=== PATIENT | male | born 1975 | race Caucasian/White ===

== ENCOUNTER → 2016-08-10 | Outpatient (CLI) | payer OTHER ==
[~2016-08-10] MED LIST: AMBIEN5 MG; ATIVAN0.5 MG PO; BACTRIM DS 8001 TA1 PO; BIAXIN500 MG PO; CELEXA10 MG PO; CELEXA40 MG PO; FIORICET 325 MG1 TAB PO; FLEXERIL10 MG PO; HYDROCODONE BIT1 T11 PO; KEFLEX500 MG PO; LAMICTAL100 MG PO; MOTRIN800 MG PO; NEURONTIN600 MG PO; ROBAXIN750 MG PO; VALIUM10 MG PO; VASOTEC10 MG PO; VICODIN ES 7501 TAB PO; VIIBRYD40 PO; VISTARIL25 M1 PO; XANAX0.5 MG PO
[2016-08-10 10:24] LABS: BASO % 0.5 % (0.0-1.0); EOS # 0.2 10*3/uL (0.0-0.4); EOS % 2.9 % (1.0-4.0); HEMATOCRIT 45.6 % (42.0-52.0); HEMOGLOBIN 15.2 g/dl (14.0-18.0); LYMPH # 2.3 10*3/uL (1.3-4.4); LYMPH % 34.7 % (27.0-41.0); MEAN CELL VOLUME 93.1 fl (80.0-94.0); MEAN CORPUSCULAR HGB CONC 33.3 g/dl (33.0-37.0); MEAN PLATELET VOLUME 9.7 fl (9.6-12.3); MONO # 0.6 10*3/uL (0.1-1.0); MONO % 8.6 % (3.0-9.0); NEUT # 3.5 10*3/uL (2.3-7.9); NEUT % 53.1 % (47.0-73.0); PLATELET COUNT AUTOMATED 246 10*3/uL (130-400); RED CELL DISTRI WIDTH 12.4 % (0-14.5); WHITE BLOOD COUNT 6.5 10*3/uL (4.8-10.8)
[2016-08-10 10:55] LABS: ALBUMIN 4.1 gm/dl (3.1-4.5); BUN 11 mg/dl (7-24); CARBON DIOXIDE 31 mmol/L (21-32); CHLORIDE 101 mmol/L (98-107); EST GLOM FILT AFRICAN AMERICAN > 60 ml/min; GLUCOSE 93 mg/dL (65-99); POTASSIUM 3.6 mmol/L (3.5-5.1); SGPT/ALT 26 U/L (12-78); SODIUM 140 mmol/L (136-145)
[2016-08-10 11:04] LABS: ALKALINE PHOSPHATASE 65 U/L (45-117); BILIRUBIN, TOTAL 0.9 mg/dl (0.2-1.0); SGOT/AST 13 IU/L (3-35); TOTAL PROTEIN 7.1 gm/dL (6.4-8.2)
[2016-08-10 11:13] LABS: VITAMIN D, 25-HYDROXY 16.4 ng/mL (30-100)
== END | disposition home or self-care (01) ==
LOC: LAB 09:52
PROVIDERS: Physician Assistant
DX: Z51.81 Encounter for therapeutic drug level monitoring (principal)

== ENCOUNTER 2018-12-09 19:40 | Emergency (ER) | payer SELFPAY ==
[~2018-12-09] VITALS: Ht 182.8 cm; Wt 104.3 kg
[2018-12-09] MEDS ORDERED: IBU600 M1 PO (20:08)
== END 2018-12-09 20:30 | disposition home or self-care (01) ==
LOC: ED 19:40
DX: M75.22 Bicipital tendinitis, left shoulder (principal)

== ENCOUNTER → 2018-12-16 | Outpatient (CLI) | payer SELFPAY ==
[~2018-12-16] MED LIST changes: +IBU600 M1 PO
[2018-12-16 19:02] LABS: URINE AMPHETAMINES < 1000 (1000ng/ml); URINE BARBITURATES < 200 (200ng/ml); URINE BENZODIAZEPINES < 200 (200ng/ml); URINE CANNABINOIDS (THC) < 50 (50ng/ml); URINE COCAINE < 300 (300ng/ml); URINE METHADONE < 300 (300ng/ml); URINE OPIATES < 300 (300ng/ml)
[2018-12-16 19:03] LABS: URINE PHENCYCLIDINE < 25 (25ng/ml)
== END | disposition home or self-care (01) ==
LOC: LAB 17:16
PROVIDERS: Nurse Practitioner Family
DX: Z51.81 Encounter for therapeutic drug level monitoring (principal); F43.10 Post-traumatic stress disorder, unspecified; F31.4 Bipolar disorder, current episode depressed, severe, without psychotic features; Z79.899 Other long term (current) drug therapy

== ENCOUNTER 2019-02-04 21:17 | Emergency (ER) | payer SELFPAY ==
[~2019-02-04] VITALS: Ht 180.3 cm; Wt 102.1 kg
== END 2019-02-04 23:30 | disposition home or self-care (01) ==
LOC: ED 21:17
DX: G43.909 Migraine, unspecified, not intractable, without status migrainosus (principal); I10 Essential (primary) hypertension; Z79.899 Other long term (current) drug therapy

== ENCOUNTER 2019-02-24 21:38 | Emergency (ER) | payer SELFPAY ==
[~2019-02-24] VITALS: Ht 182.8 cm; Wt 99.8 kg
== END 2019-02-24 22:35 | disposition left against medical advice (07) ==
LOC: ED 21:38
DX: R00.2 Palpitations (principal); F41.9 Anxiety disorder, unspecified; F32.9 Major depressive disorder, single episode, unspecified; I10 Essential (primary) hypertension; E78.00 Pure hypercholesterolemia, unspecified; Z79.899 Other long term (current) drug therapy

== ENCOUNTER 2019-05-24 22:35 | Emergency (ER) | payer SELFPAY ==
[~2019-05-24] VITALS: Ht 182.8 cm; Wt 99.8 kg
== END 2019-05-25 01:12 | disposition home or self-care (01) ==
LOC: ED 22:35
DX: G43.909 Migraine, unspecified, not intractable, without status migrainosus (principal); F41.9 Anxiety disorder, unspecified; F32.9 Major depressive disorder, single episode, unspecified; I10 Essential (primary) hypertension; F17.200 Nicotine dependence, unspecified, uncomplicated

== ENCOUNTER 2022-04-21 07:05 | Emergency (ER) | payer SELFPAY ==
[~2022-04-21] VITALS: Wt 104.3 kg
[2022-04-21] MEDS ORDERED: ZITHROMAX250 MG PO (07:44)
[2022-04-21] MEDS ORDERED: FLONASE ALLERG9.9 ML NAS (07:44)
== END 2022-04-21 07:52 | disposition home or self-care (01) ==
LOC: ED 07:05
DX: J06.9 Acute upper respiratory infection, unspecified (principal); Z98.890 Other specified postprocedural states

== ENCOUNTER 2022-06-14 18:51 | Emergency (ER) | payer SELFPAY ==
[~2022-06-14] VITALS: Wt 93.0 kg
[~2022-06-14 18:51] MED LIST changes: +FLONASE ALLERG9.9 ML NAS; +ZITHROMAX250 MG PO
== END 2022-06-14 20:33 | disposition home or self-care (01) ==
LOC: ED 18:51
DX: S60.021A Contusion of right index finger without damage to nail, initial encounter (principal); L03.011 Cellulitis of right finger; F41.9 Anxiety disorder, unspecified; F32.A Depression, unspecified; I10 Essential (primary) hypertension; Z98.890 Other specified postprocedural states; X58.XXXA Exposure to other specified factors, initial encounter; Y93.89 Activity, other specified; Y92.89 Other specified places as the place of occurrence of the external cause; Y99.8 Other external cause status

== ENCOUNTER 2023-01-10 17:26 | Emergency (ER) | payer SELFPAY ==
[~2023-01-10] VITALS: Ht 182.8 cm; Wt 86.2 kg
[2023-01-10] MEDS ORDERED: CYCLOBENZAPRINE5 M3 PO (20:45)
== END 2023-01-10 20:45 | disposition home or self-care (01) ==
LOC: ED 17:26
DX: S39.012A Strain of muscle, fascia and tendon of lower back, initial encounter (principal); R10.30 Lower abdominal pain, unspecified; F41.9 Anxiety disorder, unspecified; I10 Essential (primary) hypertension; F32.A Depression, unspecified; Z98.890 Other specified postprocedural states; X50.0XXA Overexertion from strenuous movement or load, initial encounter; Y93.43 Activity, gymnastics; Y92.39 Other specified sports and athletic area as the place of occurrence of the external cause; Y99.8 Other external cause status

== ENCOUNTER 2023-04-07 10:16 | Emergency (ER) | payer OTHER ==
[~2023-04-07] VITALS: Ht 180.3 cm; Wt 90.7 kg
[~2023-04-07 10:16] MED LIST changes: +CYCLOBENZAPRINE5 M3 PO
[2023-04-07 10:51] LABS: BASO % 0.6 % (0.0-1.0); EOS # 0.2 10*3/uL (0.0-0.4); EOS % 3.4 % (1.0-4.0); HEMATOCRIT 45.3 % (42.0-52.0); LYMPH # 1.8 10*3/uL (1.3-4.4); LYMPH % 38.2 % (27.0-41.0); MEAN CELL VOLUME 98.1 fl (80.0-94.0); MEAN CORPUSCULAR HGB 31.8 pg (27.0-31.0); MEAN CORPUSCULAR HGB CONC 32.5 g/dl (33.0-37.0); MEAN PLATELET VOLUME 9.1 fl (9.6-12.3); MONO # 0.6 10*3/uL (0.1-1.0); MONO % 11.6 % (3.0-9.0); NEUT # 2.2 10*3/uL (2.3-7.9); PLATELET COUNT AUTOMATED 281 10*3/uL (130-400); RED BLOOD COUNT 4.62 10*6/uL (4.50-5.90); RED CELL DISTRI WIDTH 12.5 % (0-14.5); WHITE BLOOD COUNT 4.7 10*3/uL (4.8-10.8)
[2023-04-07 11:11] LABS: ALKALINE PHOSPHATASE 89 U/L (46-116); BUN 16 mg/dl (9-23); CHLORIDE 105 mmol/L (98-107); POTASSIUM 4.5 mmol/L (3.4-5.1); SGPT/ALT 15 U/L (5-49); TOTAL PROTEIN 6.8 gm/dL (6.0-8.0)
[2023-04-07] MEDS ORDERED: REGLAN10 M1 PO (11:49)
[2023-04-07] MEDS ORDERED: IBU800 M1 PO (11:49)
== END 2023-04-07 11:58 | disposition home or self-care (01) ==
LOC: ED 10:16
PROVIDERS: Emergency Medicine
DX: G43.909 Migraine, unspecified, not intractable, without status migrainosus (principal); F41.9 Anxiety disorder, unspecified; F32.A Depression, unspecified; I10 Essential (primary) hypertension; R11.2 Nausea with vomiting, unspecified; Z98.890 Other specified postprocedural states

== ENCOUNTER 2023-06-12 23:09 | Emergency (ER) | payer OTHER ==
[~2023-06-12] VITALS: Ht 180.3 cm; Wt 90.7 kg
[~2023-06-12 23:09] MED LIST changes: +IBU800 M1 PO; +REGLAN10 M1 PO
[2023-06-12] MEDS ORDERED: Bacitracin Zinc 14 GM TUBE T ONE (23:50)
== END 2023-06-13 00:16 | disposition home or self-care (01) ==
LOC: ED 23:09
DX: S00.01XA Abrasion of scalp, initial encounter (principal); Z98.890 Other specified postprocedural states; W22.8XXA Striking against or struck by other objects, initial encounter; Y93.89 Activity, other specified; Y92.009 Unspecified place in unspecified non-institutional (private) residence as the place of occurrence of the external cause; Y99.8 Other external cause status

== ENCOUNTER 2023-09-04 14:14 | Emergency (ER) | payer OTHER ==
[~2023-09-04] VITALS: Wt 90.7 kg
[2023-09-04] MEDS ORDERED: SODIUM CHLORIDE 0.9% 1,000 ML IV ONE (14:55)
[2023-09-04] MEDS ORDERED: ACETAMINOPHEN 325 MG TAB PO ONE (14:55)
[2023-09-04] MEDS ORDERED: Metoclopramide Hydrochloride 10 MG/2 ML AMP IV ONE (14:55)
[2023-09-04] MEDS ORDERED: Ketorolac Tromethamine 15 MG/ML VIAL IV ONE (14:55)
[2023-09-04] MEDS ORDERED: diphenhydrAMINE hydrochloride 50 MG/ML VIAL IV ONE (14:55)
[2023-09-04] MEDS ORDERED: REGLAN10 M1 PO (16:30)
== END 2023-09-04 16:40 | disposition home or self-care (01) ==
LOC: ED 14:14
DX: R51.9 Headache, unspecified (principal); Z79.899 Other long term (current) drug therapy; Z98.890 Other specified postprocedural states

== ENCOUNTER 2023-10-29 01:39 | Emergency (ER) | payer OTHER ==
[~2023-10-29] VITALS: Wt 88.5 kg
[2023-10-29 01:57] LABS: BASO % 0.2 % (0.0-1.0); EOS # 0.1 10*3/uL (0.0-0.4); EOS % 0.9 % (1.0-4.0); HEMATOCRIT 46.4 % (42.0-52.0); LYMPH # 1.7 10*3/uL (1.3-4.4); LYMPH % 14.8 % (27.0-41.0); MEAN CELL VOLUME 95.9 fl (80.0-94.0); MEAN CORPUSCULAR HGB 31.8 pg (27.0-31.0); MEAN CORPUSCULAR HGB CONC 33.2 g/dl (33.0-37.0); MEAN PLATELET VOLUME 9.2 fl (9.6-12.3); MONO # 0.7 10*3/uL (0.1-1.0); MONO % 6.2 % (3.0-9.0); NEUT # 8.7 10*3/uL (2.3-7.9); NEUT % 77.5 % (47.0-73.0); PLATELET COUNT AUTOMATED 273 10*3/uL (130-400); RED BLOOD COUNT 4.84 10*6/uL (4.50-5.90); RED CELL DISTRI WIDTH 12.1 % (0-14.5); WHITE BLOOD COUNT 11.2 10*3/uL (4.8-10.8)
[2023-10-29 02:08] LABS: ACT PARTIAL THROMBO TIME 23.1 SECONDS (20.0-32.1)
[2023-10-29 02:20] LABS: ALKALINE PHOSPHATASE 73 U/L (46-116); BUN 16 mg/dl (9-23); CHLORIDE 103 mmol/L (98-107); ETHYL ALCOHOL < 3.0 mg/dl (<3); LIPASE 30 U/L (12-53); POTASSIUM 3.7 mmol/L (3.4-5.1); SGPT/ALT 26 U/L (5-49); TOTAL PROTEIN 7.2 gm/dL (6.0-8.0)
== END 2023-10-29 06:01 | disposition home or self-care (01) ==
LOC: ED 01:39
PROVIDERS: Internal Medicine
DX: T50.991A Poisoning by other drugs, medicaments and biological substances, accidental (unintentional), initial encounter (principal); G43.909 Migraine, unspecified, not intractable, without status migrainosus; R40.4 Transient alteration of awareness; R11.0 Nausea; F41.9 Anxiety disorder, unspecified; I10 Essential (primary) hypertension; F32.A Depression, unspecified; Z79.899 Other long term (current) drug therapy; Z98.890 Other specified postprocedural states; Z87.891 Personal history of nicotine dependence; Y92.89 Other specified places as the place of occurrence of the external cause

== ENCOUNTER 2023-12-23 05:19 | Emergency (ER) | payer OTHER ==
[~2023-12-23] VITALS: Ht 180.3 cm; Wt 86.2 kg
[2023-12-23] MEDS ORDERED: Cyclobenzaprine Hydrochlorid 10 MG TAB PO ONE (05:50)
[2023-12-23] MEDS ORDERED: Dexamethasone Sodium Phospha 20 MG/5 ML VIAL IM ONE (05:50)
[2023-12-23] MEDS ORDERED: Ketorolac Tromethamine 60 MG/2 ML VIAL IM ONE (05:50)
== END 2023-12-23 06:08 | disposition left against medical advice (07) ==
LOC: ED 05:19
DX: M25.512 Pain in left shoulder (principal); M54.2 Cervicalgia; F41.9 Anxiety disorder, unspecified; I10 Essential (primary) hypertension; F32.A Depression, unspecified; Z98.890 Other specified postprocedural states; Z53.29 Procedure and treatment not carried out because of patient's decision for other reasons